=== PATIENT | male | born 1980 | race Caucasian/White ===

== ENCOUNTER 2016-08-10 13:21 | Emergency (ER) | payer MEDICAID, OTHER ==
[~2016-08-10] VITALS: Wt 92.0 kg
--- NOTE | 2016-08-10 13:48 | ERA ---
ER Documentation Chief Complaint Date/Time DATE: 08/10/16 TIME: 13:46 Chief Complaint RIGHT EYE REDNESS X1 DAY HPI Patient is a 36-year-old male presents with his daughter complaining of a foreign body sensation in his right eye patient was playing at the park yesterday when he suddenly had a foreign body sensation in his right eye. The sensation has been continuous and the patient has not tried any remedies to relieve symptoms. Patient denies any photophobia, pruritus, loss of vision, or swelling. ROS All systems reviewed and are negative except as per history of present illness. Medications Home Meds Active Scripts Azithromycin (Azasite) 2.5 Ml Drops, 2.5 ML OP BID for 7 Days, BOTTLE Prov:SUZANNA WATSON PA-C 08/10/16 Hydrocodone/Acetaminophen ([place] 5-325 Tablet) 1 Each Tablet, 1 TAB PO Q6H Y for PAIN, #7 TAB Prov:SUZANNA WATSON PA-C 08/10/16 Allergies Allergies: Coded Allergies: No Known Allergy (Unverified , 08/10/16) Physical Exam Vitals Vital Signs Date Time Temp Pulse Resp B/P Pulse Ox O2 Delivery O2 Flow Rate FiO2 08/10/16 13:25 97.4 74 18 125/69 97 Physical Exam Const: [] Head: Atraumatic Eyes: Normal Conjunctiva ENT: Normal External Ears, Nose and Mouth. Neck: Full range of motion..~ No meningismus. Resp: Clear to auscultation bilaterally Cardio: Regular rate and rhythm, no murmurs Abd: Soft, non tender, non distended. Normal bowel sounds Skin: No petechiae or rashes Back: No midline or flank tenderness Ext: No cyanosis, or edema Neur: Awake and alert Psych: Normal Mood and Affect Results 24 hrs Current Medications Medications (Trade) Dose Ordered Sig/[place] Route PRN Reason Start Time Stop Time Status Last Admin Dose Admin Fluorescein Sodium ([id number]-Ozslv) 1 strip ONCE ONCE RIGHT EYE 08/10/16 14:00 08/10/16 14:01 DC Tetracaine HCl (Tetracaine 0.5% Steri-Unit [place]) 1 drop ONCE ONCE RIGHT EYE 08/10/16 14:00 08/10/16 14:01 DC Procedures/MDM Patient presents with 1 day of a foreign body sensation in the eye. His physical exam is unremarkable. we will go ahead and get a floor seen examination to evaluate for foreign body/trauma to the eye. There was a foreign body in the eye and Dr. Mortensen, taken out with a needle and slight limp. Discharge medications will include oral NSAIDs for discomfort and azithromycin for prophylactic against infection. Departure Diagnosis: Primary Impression: Corneal foreign body Condition: Stable SUZANNA WATSON PA-C Aug 10, 2016 13:48
[2016-08-10] MEDS ORDERED: TETRACAINE 0.5% 4 ML OPH RIGHT EYE ONE (14:00)
[2016-08-10] MEDS ORDERED: FLUORESCEIN STRIP RIGHT EYE ONE (14:00)
[2016-08-10] MEDS ORDERED: HYDR-906 PO (15:18)
[2016-08-10] MEDS ORDERED: AZIT2.5D4 OP (15:18)
== END 2016-08-10 15:30 | disposition home or self-care (01) ==
LOC: FTE 13:21
DX: T15.01XA Foreign body in cornea, right eye, initial encounter (principal); F17.210 Nicotine dependence, cigarettes, uncomplicated; X58.XXXA Exposure to other specified factors, initial encounter; Y92.830 Public park as the place of occurrence of the external cause
CPT/HCPCS: 65222; Z7610